=== PATIENT | female | born 1980 | race Caucasian/White ===

== ENCOUNTER 2017-06-14 13:57 | Inpatient (IN) | payer OTHER ==
[~2017-06-14] VITALS: Ht 160 cm; Wt 50.8 kg
[2017-06-14] MEDS ORDERED: SYNTHROID50 MCG PO (15:43)
[2017-06-16] MEDS ORDERED: CODE1TAB37 PO (09:27)
== END 2017-06-16 10:40 | disposition home or self-care (01) | DRG 775 ==
LOC: LDR 13:57 → SURG 06-15 21:42
PROC: 10A07ZX Abortion of Products of Conception, Abortifacient, Via Natural or Artificial Opening (ICD-10-PCS; principal; 2017-06-15)
DX: O35.0XX1 Maternal care for (suspected) central nervous system malformation in fetus, fetus 1 (principal); Z37.1 Single stillbirth; Z3A.19 19 weeks gestation of pregnancy

== ENCOUNTER 2020-01-08 15:00 | Inpatient (IN) | payer OTHER ==
[~2020-01-08] VITALS: Ht 160 cm; Wt 3.2 kg
[~2020-01-08 15:00] MED LIST: CODE1TAB37 PO; SYNTHROID50 MCG PO
[2020-01-15] MEDS ORDERED: SYNTHROID75 MCG PO (06:56)
[2020-01-15] MEDS ORDERED: PRENATAL TABLE1 EAC1 PO (06:56)
[2020-01-15] MEDS ORDERED: IRON 100 PLUS1 EACH PO (06:58)
[2020-01-16] MEDS ORDERED: FAMOTIDINE20 MG (08:00)
== END 2020-01-18 15:31 | disposition home or self-care (01) | DRG 788 ==
LOC: LDR 01-15 05:31 → O/R 01-15 18:33 → OB/GYN 01-15 21:14 → SURG-SUITE 01-16 07:05 → OB/GYN 01-20 15:15
PROVIDERS: ADMIT Obstetrics & Gynecology Maternal & Fetal Medicine; ATTEND Obstetrics & Gynecology Maternal & Fetal Medicine
PROC: 3E033VJ Introduction of Other Hormone into Peripheral Vein, Percutaneous Approach (ICD-10-PCS; 2020-01-15)
PROC: 10907ZC Drainage of Amniotic Fluid, Therapeutic from Products of Conception, Via Natural or Artificial Opening (ICD-10-PCS; 2020-01-15)
PROC: 4A1HXFZ Monitoring of Products of Conception, Cardiac Rhythm, External Approach (ICD-10-PCS; 2020-01-15)
PROC: 10D00Z1 Extraction of Products of Conception, Low, Open Approach (ICD-10-PCS; principal; 2020-01-15 17:15)
DX: O62.1 Secondary uterine inertia (principal); O65.8 Obstructed labor due to other maternal pelvic abnormalities; Z3A.39 39 weeks gestation of pregnancy; Z37.0 Single live birth